=== PATIENT | male | born 1940 ===

== ENCOUNTER 2018-01-03 19:06 | Emergency (ER) | payer MEDICARE ==
[2018-01-03 19:16] VITALS: BP 158/84; TEMP 98.3
[2018-01-03] MEDS ORDERED: Alum-Mag Hydrox-Simethicone Susp (30 mL) PO STA (19:35)
[2018-01-03] MEDS ORDERED: Aluminum Hydroxide/Magnesium Hydroxide Susp (30 mL) ONE (19:44)
--- NOTE | 2018-01-03 19:59 | C.PDOC ---
History Of Present Illness Pt states that he was eating peanuts when he choked on one. He then had a few episodes of coughing up phlegm with some blood in it. 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 Constitutional: Negative for: Fever, Chills, Sweats, Weakness, Weight loss ENT: Negative for: Throat Pain, Throat Swelling Cardiovascular: Negative for: Chest Pain Respiratory: Positive for: Hemoptysis. Negative for: Shortness of Breath Gastrointestinal: Negative for: Vomiting, Abdominal Pain Musculoskeletal: Negative for: Neck Pain, Back Pain, Leg Pain Skin: Negative for: Rash Neurological: Negative for: Weakness, Numbness Physical Exam - Physical Exam Appears: Non-toxic, No Acute Distress Skin: Normal Color, Warm, Dry Head: Atraumatic, Normacephalic Eye(s): bilateral: Normal Inspection, PERRL, EOMI Oral Mucosa: Moist, No Drooling, No Trismus Throat: Normal Neck: Normal ROM, Supple Lymphatic: No Adenopathy Cardiovascular: Rhythm Regular Respiratory: Normal Breath Sounds, No Accessory Muscle Use Gastrointestinal/Abdominal: Soft, No Tenderness Extremity: Normal ROM, No Pedal Edema, No Calf Tenderness Neurological/Psych: Oriented x3, Normal Speech, Normal Motor, Normal Sensation ED Course And Treatment O2 Sat by Pulse Oximetry: 98 Pulse Ox Interpretation: Normal - Radiology CXR: Interpreted by Me, Viewed By Me CXR Interpretation: Yes: No Acute Disease, Other (No change from X-ray taken last year) Reassessment Condition: Improved Medical Decision Making Medical Decision Making: Hemoptysis is likely due to the irritation after the choking episode. Pt is not on any anticoagulants or antiplatelet agents. Disposition Counseled Patient/Family Regarding: Studies Performed, Diagnosis, Need For Followup - Disposition Referrals: Flakito Huynh MD [Staff Provider] - Disposition: HOME/ ROUTINE Disposition Time: 19:59 Condition: STABLE Additional Instructions: Follow up with your doctor within 2-3 days for further evaluation and treatment. Return to the ER immediately if you develop fever, shortness of breath, chest pain, worsening of symptoms or if you have any other concerns. Instructions: Coughing up Blood - Clinical Impression Clinical Impression: Hemoptysis
[2018-01-03 20:06] VITALS: PULSE 70; RESP 16; O2SAT 100
--- NOTE | 2018-01-04 08:26 | RAD ---
Date of service: 01/03/2018 HISTORY: Hemoptysis. h/o TB, treated decades ago COMPARISON: Chest radiographs 10/31/2016. TECHNIQUE: Chest PA and lateral FINDINGS: LUNGS: No active pulmonary disease. PLEURA: No significant pleural effusion identified. No pneumothorax apparent. CARDIOVASCULAR: Normal. OSSEOUS STRUCTURES: No significant abnormalities. VISUALIZED UPPER ABDOMEN: Normal. OTHER FINDINGS: None. IMPRESSION: No interval acute cardiopulmonary disease appreciated.
== END 2018-01-03 20:06 | disposition home or self-care (01) ==
LOC: C.ER 19:06
DX: R04.2 Hemoptysis (principal)